=== PATIENT | female | born 1995 | race Caucasian/White ===

== ENCOUNTER 2018-08-19 09:23 | Day surgery (SDC) | payer OTHER ==
[2018-08-19] VITALS (15 sets, daily range): BP systolic 83–109; BP diastolic 39–56; PULSE 48–86; RESP 9–19; Ht 154.9 cm; Wt 56.7 kg
[~2018-08-19] VITALS: Ht 154.9 cm; Wt 56.7 kg
[2018-08-19] MEDS ORDERED: LORA-186 PO (10:17)
--- NOTE | 2018-08-19 10:59 | HPN ---
Date/Time of Note Date/Time of Note DATE: 08/19/18 TIME: 10:58 Interval H&P Admission Note Pt. seen H&P reviewed: No system changes ARLET GLASS August 19, 2018 10:59
[2018-08-19] MEDS ORDERED: CEFAZOLIN 2 GM/50 ML (PMX) 50 ML IVPB ONE (11:30)
[2018-08-19] MEDS ORDERED: LACTATED RINGER'S 1,000 ML IV* ONE (11:30)
--- NOTE | 2018-08-19 12:10 | PREAC ---
Date/Time of Note Date/Time of Note DATE: 08/19/18 TIME: 12:09 Anesthesia Eval and Record Evaluation Time Pre-Procedure Interview DATE: 08/19/18 TIME: 12:09 Age 23 Sex female NPO: 8 hrs Preoperative diagnosis left wrist dequrvains tenosynovitis left radial Planned procedure LEFT WRIST FIRST DORSAL Past Medical History Past Medical History: None Surgery & Anesthesia Issues No known issue Meds Anticoagulation: No Beta Adrianne within 24 hr: No Reason Beta Adrianne not given: Pt. not on B-Adrianne Reported Medications Loratadine* (Claritin*) 10 Mg Tablet, 10 MG PO DAILY, TAB 08/19/18 Current Medications Lactated Ringer's 1,000 ml @ 20 mls/hr Q24H ONCE IV* ; Start 08/19/18 at 11:30; Stop 08/20/18 at 11:29 Meds reviewed: Yes Allergies Coded Allergies: No Known Allergy (Unverified , 08/19/18) Allergies Reviewed: Yes Labs/Studies Labs Reviewed: Other (NA) test: Negative Pre-procedure Exam Last vitals Vital Signs Date Temp Pulse Resp B/P (MAP) Pulse Ox O2 O2 Flow FiO2 Time Delivery Rate 08/19/18 97.7 86 16 109/56 100 Room Air 10:53 (73) Airway: Adequate mouth opening Mallampati: Mallampati II Teeth: Normal Lung: Normal Heart: Normal ASA Physical Status ASA physical status: 1 Emergency: None Planned Anesthetic General/MAC: ETT Pre-operative Attestations Prior to commencing anesthesia and surgery, the patient was re-evaluated, there was verification of: *The patient's identity *The results of appropriate recent lab work and preoperative vital signs *The above evaluation not changing prior to induction *Anesthetic plan, risk benefits, alternative and complications discussed with patient/family; questions answered; patient/family understands, accepts and wishes to proceed. HUE UGALDE August 19, 2018 12:10
[2018-08-19] MEDS ORDERED: BUPIVACAINE 0.5% (SDV) 30 ML INJ ONE (12:14)
[2018-08-19] MEDS ORDERED: FENTAnyl 50 MCG/ML VIAL ONE (12:25)
[2018-08-19] MEDS ORDERED: MIDAZOLAM 1 MG/ML 2 ML INJ ONE (12:25)
[2018-08-19] MEDS ORDERED: PROPOFOL 20 ML ONE (12:25)
[2018-08-19] MEDS ORDERED: CEFAZOLIN 1 GM INJ ONE (12:31)
--- NOTE | 2018-08-19 16:27 | OPPN ---
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
--- NOTE | 2018-08-19 19:47 | OPR ---
DATE OF OPERATION: 08/19/2018 SURGEON: Ag Shah MD ANESTHESIA: Local MAC. PREOPERATIVE DIAGNOSES: 1. Left wrist first dorsal compartment stenosing tenosynovitis. 2. Left radial-sided wrist ganglion cyst. POSTOPERATIVE DIAGNOSES: 1. Left wrist first dorsal compartment stenosing tenosynovitis. 2. Left radial-sided wrist ganglion cyst. PROCEDURES: 1. Left wrist first dorsal compartment tendon sheath incision for de Quervain's. 2. Left wrist first dorsal compartment tenosynovectomy. 3. Excision of ganglion cyst from left radial wrist. OPERATIVE FINDINGS: Stenosing tenosynovitis, left wrist first dorsal compartment with a ganglion cys t present. INDICATION FOR PROCEDURE: A 23-year-old female with longstanding left wrist pain who failed conserva tive measures including injection, elected to proceed with surgical intervention, understanding the r isks and benefits. DESCRIPTION OF PROCEDURE: The patient was seen in the preoperative area and all further questions we re answered. Again, she gave informed consent understanding the risks and benefits. She was taken t o the operative suite and placed in supine position. Ancef 2 grams IV was given as was sedation IV. Tourniquet placed in the left upper extremity and left upper extremity was prepped with ChloraPrep s tick and draped in usual sterile fashion. Esmarch bandage was used to exsanguinate the extremity and tourniquet inflated to 250 mmHg. A local anesthesia was injected with a total of 10 mL injected at the surgical site at the radial left wrist. A longitudinal incision along the course of the first do rsal compartment tendons at the level of the wrist joint was utilized with sharp dissection carried d own through skin and subcutaneous tissue. Tenotomy scissors divided the soft tissues overlying the f irst dorsal compartment and the branches of the radial sensory nerve were identified and protected. The dorsal aspect of the first dorsal compartment was incised from its distal most aspect to its prox imal most aspect. This decompressed the EPB tendons but the APL tendons were not present within this tunnel. A separate tunnel was present more volarly for the APL tendons and this tendon sheath was a lso incised longitudinally from its most distal aspects to its most proximal aspect. After the tendo n sheath incision of the first dorsal compartment and decompression of the first dorsal compartment t endons, I proceeded with excision of the ganglion cyst, which was arising from the radial aspect of t he wrist. The ganglion cyst at the level of the radiocarpal joint was excised using tenotomy scissor s and Adson forceps. After the cyst was no longer present, I turned my attention to the tenosynoviti s. There was tenosynovitis present at the first dorsal compartment and a tenosynovectomy was perform ed and achieved using tenotomy scissors and Adson forceps. After the tendons were cleaned and glidin g independently and nicely, they are quite stable in the groove and the wound was copiously irrigated . Skin closed with 5-0 nylon. Xeroform placed over the wound followed by sterile gauze, Webril, and a short arm thumb spica splint with the wrist in gentle extension. Tourniquet deflated after 12 min utes. The patient was awakened from anesthesia. She was taken to postoperative suite in stable cond ition, tolerated the procedure well without complication. SPECIMENS: None. ESTIMATED BLOOD LOSS: 5 mL. COUNTS: Sponge, instrument, needle counts correct. TOURNIQUET TIME: 12 minutes. CONDITION ON DISCHARGE: Stable. The patient was given a nonrefillable 5-day prescription for pain medication for surgery today. Dictated By: AG WHITNEY/MAGDALENA Conf#: [id number] DID#: [id number]
== END 2018-08-19 15:05 | disposition home or self-care (01) ==
LOC: SDS 09:23
PROVIDERS: ATTEND Orthopaedic Surgery Hand Surgery
DX: M67.432 Ganglion, left wrist (principal); M65.4 Radial styloid tenosynovitis [de Quervain]
CPT/HCPCS: 25111; J0690; J2250; J3010; Z7512; Z7610